=== PATIENT | female | born 2000 | race African-American/Black ===

== ENCOUNTER 2022-12-17 16:03 | Inpatient (IN) | payer OTHER, SELFPAY ==
[2022-12-17] VITALS (9 sets, daily range): BP systolic 79–205; BP diastolic 40–188; PULSE 63–153; BMI 35.6
--- NOTE | 2022-12-17 16:03 | LDADM ---
This patient, Simona Delgadillo, was admitted to Labor/Delivery/Recovery 108 on 12/17/22 at 16:03. Plans for labor, pain management and were discussed with patient. Patient/family oriented to hospital policies and general routines including ID bracelet, bed and alarms, visiting hours, pain management, procedures, bathroom and other care routines, personal items, smoking policy, room service/diet and guest tray routines, infant security routines, and visiting hours. Patient/Family are encouraged to report perceived risks to care and to ask questions if they do not understand what they are told or what they should do. See OBIX for further documentation.
--- NOTE | 2022-12-17 16:55 | P.PNAN_ITS ---
Anes - Eval Pre Procedure Procedure: Labor epidural Date/Time: 12/17/22 16:55 Pre Op Diagnosis: Induction of Labor Patient Data Age: 22 Gender: F Height: Weight: Last Vital Signs Pulse 84 12/17/22 16:39 BP 127/85 12/17/22 16:39 Allergies Allergy/AdvReac Type Severity Reaction Status Date / Time No Known Allergies Allergy Unverified 02/22/12 18:36 Home Medications Medication Instructions Recorded Confirmed Type albuterol sulfate 90 mcg/actuation 2 puff inhalation QID PRN Wheezing 11/19/22 11/19/22 History aerosol inhaler ferrous sulfate 325 mg (65 mg 325 mg PO DAILY 11/19/22 11/19/22 History iron) tablet prenat.vits,matthew,zye-pugi-bpnew 1 tablet PO HS 11/19/22 11/19/22 History Patient hx anesthesia problems: none Family hx anesthesia problems: none Results Review: All pre-operative results and documents have been reviewed as part of the pre- operative evaluation. [facility] Past Medical History Medical History (Updated 12/17/22 @ 16:56 by Tiffanie Ho CRNA) Sickle cell trait Family History Family History Other Patient denies significant medical history Social History Social History Substance use: never Spiritual care concerns: No Exam Day of Procedure 12/17/22 16:55 Patient weight: obese Heart: regular rate and rhythm Lungs: normal air movement Neurological: alert and oriented
[2022-12-17 17:04] LABS: Basophils Percent Auto 0.6 % (0.2-1.2); Eosinophils Absolute Auto 0.1 K/mm3 (0-0.3); Eosinophils Percent Auto 1.6 % (0-4.4); Hematocrit 31.5 % (37.0-47.0); Hemoglobin 10.4 g/dL (12.0-15.0); Immature Granulocyte Absolute 0.05 K/mm3 (0.00-0.031); Immature Granulocyte Percent A 0.8 % (0-0.5); Lymphocytes Absolute Auto 1.96 K/mm3 (0.9-3.2); Lymphocytes Percent Auto 30.7 % (18.3-44.2); Mean Corpuscular Hemoglobin 25.6 pg (26-34); Mean Corpuscular Volume 77.4 fl (80-100); Mean Platelet Volume 9.6 fl (7.4-10.4); Monocytes Absolute Auto 0.5 K/mm3 (0.1-0.6); Monocytes Percent Auto 7.5 % (2.6-8.5); Neutrophils Absolute Auto 3.8 K/mm3 (1.3-6.7); Neutrophils Percent Auto 58.8 % (45.5-73.1); Platelet Count Result 287 k/mm3 (150-375); Red Blood Count 4.07 M/mm3 (4.2-5.4); Red Cell Distribution Width 15.1 % (11.5-14.5); White Blood Count 6.4 K/mm3 (4.5-10.0)
[2022-12-17] MEDS: miSOPROStol 25 MCG TABLET VAGINAL (17:41)
[2022-12-17 18:14] LABS: Amphetamine Screen Urine Negative (Negative); Barbiturate Screen Urine Negative (Negative); Benzodiazepines Screen Urine Negative (Negative); Cannabinoid Screen Urine Positive (Negative); Cocaine Screen Urine Negative (Negative); Methadone Screen Urine Negative (Negative); Opiate Screen Urine Negative (Negative); Phencyclidine Screen Urine Negative (Negative)
[2022-12-17] MEDS: AMPICILLIN 2 GM/NS 100 ML 2 GM/100 ML BAG IVPB (21:31)
[2022-12-17] MEDS: LACTATED RINGERS 1,000 ML 125 ML IV CONT (21:32)
[2022-12-18] VITALS (253 sets, daily range): BP systolic 90–163; BP diastolic 47–106; PULSE 26–206; RESP 14–20; TEMP 36.4–38; O2SAT 83–100
[2022-12-18] MEDS: fentaNYL CITRATE INJ (*CRX) 100 MCG/2 ML VIAL IV PUSH ×2 (01:48→06:35)
[2022-12-18] MEDS: LACTATED RINGERS 1,000 ML 125 ML IV CONT ×3 (01:49→09:22)
[2022-12-18] MEDS: AMPICILLIN 1 GM/NS 50 ML 1 GM/50 ML BAG IVPB ×4 (02:50→15:08)
[2022-12-18] MEDS: OXYTOCIN 30 UNITS/NS 500 ML 30 UNITS/500 ML BAG IV CONT (05:30)
--- NOTE | 2022-12-18 06:50 | PM.IMHP ---
H&P: HPI History of Present Illness Date/Time: 12/18/22 06:50 Chief Complaint: induction of labor Narrative: Simona is a 22yo G1 at 40.1 who presented last night for induction of labor. Received one dose of cytotec. Much of the night had tachysytole though she felt no contractions until recently and made no cervical change. Pitocin was just able to be started recently but then was stopped again due to tachysystole. complicated by chlamydia x2, just retreated last week, anemia, GBS pos, and sickle cell trait. Review of Systems Review of Systems: All systems reviewed & are unremarkable except as noted in HPI and below PMFSH Past Medical History Medical History (Updated 12/18/22 @ 06:54 by Juli Miller MD) Sickle cell trait Family History Family History Other Patient denies significant medical history Social History Social History Smoking status: Current every day smoker Second hand tobacco smoke exposure: Yes Additional smoking assessment comments: smoking weed. Substance use: never Lack of Transportation: No Lack of Food: Never True Current Housing: I Have Housing Concerned About Future Housing: No Difficulty Paying Gas/Electric Bills: No Difficulty Paying for Meds: No Currently Unemployed: YES Education: Grade School Difficulty w/ Childcare or Family Care: No Spiritual care concerns: No Meds Home Medications and Allergies Home Medications Medication Instructions Recorded Confirmed Type albuterol sulfate 90 mcg/actuation 2 puff inhalation QID PRN Wheezing 11/19/22 12/17/22 History aerosol inhaler ferrous sulfate 325 mg (65 mg 325 mg PO DAILY 11/19/22 12/17/22 History iron) tablet prenat.vits,matthew,krs-dgva-jumaq 1 tablet PO HS 11/19/22 12/17/22 History Allergies Allergy/AdvReac Type Severity Reaction Status Date / Time No Known Allergies Allergy Verified 12/17/22 17:10 Vital Signs Vital Signs - 24 hr 12/17/22 16:39 12/17/22 17:01 12/17/22 17:16 Temperature Pulse Rate 84 153 H 74 Blood Pressure 127/85 205/188 H 119/70 Pulse Oximetry Oxygen Delivery 12/17/22 17:30 12/17/22 17:45 12/17/22 17:49 Temperature Pulse Rate 64 71 66 Blood Pressure 108/63 128/96 H 103/64 Pulse Oximetry Oxygen Delivery 12/17/22 18:01 12/17/22 18:15 12/17/22 22:14 Temperature Pulse Rate 63 72 66 Blood Pressure 79/40 L 101/45 L 141/88 H Pulse Oximetry Oxygen Delivery 12/18/22 01:55 12/18/22 02:00 12/18/22 02:05 Temperature Pulse Rate Blood Pressure Pulse Oximetry 99 100 99 Oxygen Delivery 12/18/22 02:10 12/18/22 02:15 12/18/22 02:20 Temperature Pulse Rate Blood Pressure Pulse Oximetry 99 99 99 Oxygen Delivery 12/18/22 02:22 12/18/22 02:23 12/18/22 04:52 Temperature Pulse Rate 59 L Blood Pressure 100/55 L Pulse Oximetry 99 100 Oxygen Delivery 12/18/22 05:02 12/18/22 05:15 12/18/22 05:30 Temperature Pulse Rate 66 66 68 Blood Pressure 106/47 L 112/59 L 124/75 Pulse Oximetry Oxygen Delivery 12/18/22 05:00 12/18/22 06:00 12/18/22 06:45 Temperature 98.1 F 97.9 F Pulse Rate 69 Blood Pressure 124/81 Pulse Oximetry Oxygen Delivery 12/17/22 17:15 Temperature Pulse Rate Blood Pressure Pulse Oximetry Oxygen Delivery Room Air Exam Const: General: no acute distress Resp: Effort & Inspection: normal respiratory effort Auscultation: clear to auscultation bilaterally Cardio: Rate: regular rate Rhythm: regular rhythm GI: GI Palp: Yes Soft to palpation Extrem: General: normal to inspection H&P: Results Labs Labs: Short CBC 12/17/22 Range/Units 16:37 WBC 6.4 (4.5-10.0) K/mm3 Hgb 10.4 L (12.0-15.0) g/dL Hct 31.5 L (37.0-47.0) % Plt Count 287 (150-375) k/mm3 Assessment and P
--- NOTE | 2022-12-18 09:57 | WPDANESEPP ---
Anes - Eval Pre Procedure Procedure: labor epidural Date/Time: 12/18/22 09:57 Surgeon: Paul Preop Diagnosis: labor pain Pre Op Diagnosis: Induction of Labor Patient Data Age: 22 Gender: F Height: 1.65 m Weight: 97 kg Last Vital Signs Temp 36.6 C 12/18/22 06:00 Pulse 63 12/18/22 09:45 BP 106/75 12/18/22 09:45 Pulse Ox 100 12/18/22 09:55 O2 Del Method Room Air 12/17/22 17:15 Allergies Allergy/AdvReac Type Severity Reaction Status Date / Time No Known Allergies Allergy Verified 12/17/22 17:10 Home Medications Medication Instructions Recorded Confirmed Type albuterol sulfate 90 mcg/actuation 2 puff inhalation QID PRN Wheezing 11/19/22 12/17/22 History aerosol inhaler ferrous sulfate 325 mg (65 mg 325 mg PO DAILY 11/19/22 12/17/22 History iron) tablet prenat.vits,matthew,fjm-gsts-dgiob 1 tablet PO HS 11/19/22 12/17/22 History Laboratory Tests 12/17/22 12/17/22 12/17/22 16:37 16:37 16:37 WBC 6.4 K/mm3 K/mm3 (4.5-10.0) RBC 4.07 M/mm3 L M/mm3 (4.2-5.4) Hgb 10.4 g/dL L g/dL (12.0-15.0) Hct 31.5 % L % (37.0-47.0) MCV 77.4 fl L fl (80-100) MCH 25.6 pg L pg (26-34) MCHC 33.0 g/dl g/dl (32-36) RDW 15.1 % H % (11.5-14.5) Plt Count 287 k/mm3 k/mm3 (150-375) MPV 9.6 fl fl (7.4-10.4) Immature Gran % (Auto) 0.8 % H % (0-0.5) Neut % (Auto) 58.8 % % (45.5-73.1) Lymph % (Auto) 30.7 % % (18.3-44.2) [place] % (Auto) 7.5 % % (2.6-8.5) Eos % (Auto) 1.6 % % (0-4.4) Baso % (Auto) 0.6 % % (0.2-1.2) Lymph # (Auto) 1.96 K/mm3 K/mm3 (0.9-3.2) [place] # (Auto) 0.5 K/mm3 K/mm3 (0.1-0.6) Eos # (Auto) 0.1 K/mm3 K/mm3 (0-0.3) Baso # (Auto) 0.0 K/mm3 K/mm3 (0.0-0.1) Abs Immat Gran (auto) 0.05 K/mm3 H K/mm3 (0.00-0.031) Absolute Neuts (auto) 3.8 K/mm3 K/mm3 (1.3-6.7) Absolute Nucleated RBC 0.0 K/mm3 K/mm3 (0.0-0.012) Nucleated RBC % 0.0 % % (0.0-0.2) Urine Opiates Screen Urine Methadone Screen Ur Barbiturates Screen Ur Phencyclidine Scrn Ur Amphetamine Screen U Benzodiazepines Scrn Urine Cocaine Screen U Cannabinoids Screen RPR Pending Blood Type O Positive Antibody Screen Negative 12/17/22 17:37 WBC RBC Hgb Hct MCV MCH MCHC RDW Plt Count MPV Immature Gran % (Auto) Neut % (Auto) Lymph % (Auto) [place] % (Auto) Eos % (Auto) Baso % (Auto) Lymph # (Auto) [place] # (Auto) Eos # (Auto) Baso # (Auto) Abs Immat Gran (auto) Absolute Neuts (auto) Absolute Nucleated RBC Nucleated RBC % Urine Opiates Screen Negative (Negative) Urine Methadone Screen Negative (Negative) Ur Barbiturates Screen Negative (Negative) Ur Phencyclidine Scrn Negative (Negative) Ur Amphetamine Screen Negative (Negative) U Benzodiazepines Scrn Negative (Negative) Urine Cocaine Screen Negative (Negative) U Cannabinoids Screen Positive A (Negative) RPR Blood Type Antibody Screen : gestational age (, ANN 12/17/22) Patient hx anesthesia problems: none Family hx anesthesia problems: none Results Review: All pre-operative results and documents have been reviewed as part of the pre-operative evaluation. [facility] Past Medical History Medical History (Updated 12/18/22 @ 06:54 by Juli Miller MD) Sickle cell trait Family History Family History Other Patient denies significant medical history Social History Social History (Revi
[2022-12-18 10:53] LABS: Rapid Plasma Reagin Non-Reactive (NonReactive)
--- NOTE | 2022-12-18 18:02 | WPDHPUPDATE1 ---
History and Physical Update Update Date/Time: 12/18/22 18:02 FHT category 1. toco: q 1 min, from 20 to 40 MVUs each above baseline. SVE /-2 Given persistent tachysystole all day, no matter what is done with pitocin (break, half, pit through them) and inability to obtain adequate contractions, and fetus still high in pelvis and abdomen, with minimal change from 5 to 7cm all day, now with temp of 100.4, I recommend a delivery. Possible LGA baby, definite uterine dysfunction that we cannot overcome. I prefer to do before baby is compromised when vaginal delivery seems unlikely. Discussed RBA of with pt. Mandie. She consents readily. Will proceed. Risks, benefits, and alternatives have been discussed and questions answered. Patient agrees to proceed with procedure.
[2022-12-18] MEDS: ceFAZolin 2 GM/D5W 50 ML 2 GM/50 ML BAG IVPB (18:26)
--- NOTE | 2022-12-18 18:52 | WPDANESEPP ---
Anes - Eval Pre Procedure Procedure: Operation Date: 12/18/22 18:30 Proposed Procedures p Section - Juli Miller MD Date/Time: 12/18/22 18:52 Pre Op Diagnosis: Induction of Labor Patient Data Age: 22 Gender: F Height: 1.65 m Weight: 97 kg Last Vital Signs Temp 38.0 C H 12/18/22 18:00 Pulse 110 H 12/18/22 18:00 BP 90/64 L 12/18/22 18:00 Pulse Ox 100 12/18/22 18:05 O2 Del Method Room Air 12/17/22 17:15 Allergies Allergy/AdvReac Type Severity Reaction Status Date / Time No Known Allergies Allergy Verified 12/17/22 17:10 Home Medications Medication Instructions Recorded Confirmed Type albuterol sulfate 90 mcg/actuation 2 puff inhalation QID PRN Wheezing 11/19/22 12/17/22 History aerosol inhaler ferrous sulfate 325 mg (65 mg 325 mg PO DAILY 11/19/22 12/17/22 History iron) tablet prenat.vits,matthew,tuu-vdtk-aswju 1 tablet PO HS 11/19/22 12/17/22 History Laboratory Tests 12/17/22 16:37 RPR Non-reactive (NonReactive) Patient hx anesthesia problems: none Family hx anesthesia problems: none Results Review: All pre-operative results and documents have been reviewed as part of the pre-operative evaluation. [facility] Past Medical History Medical History Sickle cell trait Family History Family History Other Patient denies significant medical history Social History Social History Smoking status: Current every day smoker Second hand tobacco smoke exposure: Yes Additional smoking assessment comments: smoking weed. Substance use: never Lack of Transportation: No Lack of Food: Never True Current Housing: I Have Housing Concerned About Future Housing: No Difficulty Paying Gas/Electric Bills: No Difficulty Paying for Meds: No Currently Unemployed: YES Education: Grade School Difficulty w/ Childcare or Family Care: No Spiritual care concerns: No Exam Day of Procedure 12/18/22 18:52 Patient weight: obese Heart: regular rate and rhythm Lungs: normal air movement Airway: Mallampati scale class II Neurological: alert and oriented
[2022-12-18] MEDS: TRANEXAMIC ACID 1,000 MG/10 ML AMPUL 1000 MG IV PUSH (19:02)
[2022-12-18] MEDS: METHYLERGONOVINE MALEATE 0.2 MG/ML VIAL IM ×2 (19:04→19:58)
[2022-12-18] MEDS: CARBOPROST TROMETHAMINE 250 MCG/ML AMPUL IM (19:07)
[2022-12-18 19:27] LABS: Hemoglobin 8.5 g/dL (12.0-15.0)
[2022-12-18] MEDS: miSOPROStol 200 MCG TABLET 800 MCG RECTAL (19:58)
[2022-12-18 20:18] LABS: Basophils Percent Auto 0.3 % (0.2-1.2); Eosinophils Percent Auto 0.1 % (0-4.4); Hemoglobin 8.4 g/dL (12.0-15.0); Immature Granulocyte Absolute 0.04 K/mm3 (0.00-0.031); Immature Granulocyte Percent A 0.3 % (0-0.5); Lymphocytes Absolute Auto 1.03 K/mm3 (0.9-3.2); Lymphocytes Percent Auto 7.5 % (18.3-44.2); Mean Corpuscular HGB Conc 32.3 g/dl (32-36); Mean Corpuscular Hemoglobin 25.1 pg (26-34); Mean Corpuscular Volume 77.6 fl (80-100); Mean Platelet Volume 9.4 fl (7.4-10.4); Monocytes Absolute Auto 0.8 K/mm3 (0.1-0.6); Monocytes Percent Auto 5.5 % (2.6-8.5); Neutrophils Absolute Auto 11.9 K/mm3 (1.3-6.7); Neutrophils Percent Auto 86.3 % (45.5-73.1); Platelet Count Result 205 k/mm3 (150-375); Red Blood Count 3.35 M/mm3 (4.2-5.4); Red Cell Distribution Width 15.4 % (11.5-14.5); White Blood Count 13.8 K/mm3 (4.5-10.0)
--- NOTE | 2022-12-18 20:38 | PM.OBPRVD ---
OB - Delivery Note Procedure Delivery date: 12/18/22 Procedure: Procedures Operation Date: 12/18/22 18:30 Actual Procedure Side Surgeon p Section Bilateral Juli Miller MD Events: Elective Induction of Labor and Other Intrapartal Events: Arrest of Dilation, Failed Induction of Labor and Other (dysfunctional uterus) Induction method: AROM, Per Misoprostol Protocol and Per Pitocin Protocol Delivery monitor: External FHT and Internal Uterine Route of delivery: Prior to decision for section, ACOG/SMFM labor guidelines were considered and discussed with the patient and staff. Decision made to proceed with the section.: Yes Specimen: Yes (placenta) Quantitative Blood Loss (ml): 1,963 Anesthesia type: Epidural Disposition: Floor Complications: none Narrative: The patient was taken to the OR and received spinal anesthesia. She was placed in dorsal supine position with left lateral tilt. SCDs and gaspar were placed. She was prepped and draped in the normal sterile fashion. A Pfannensteil skin incision was made and carried through to the underlying layer of fascia. The fascia was incised in the midline and then extended laterally using Nieto scissors. The muscles were in the midline and the peritoneum was entered bluntly. The peritoneal incision was extended inferiorly and superiorly with care to avoid the bladder. The bladder blade was then inserted, the vesicouterine peritoneum was grasped, incised with Metzenbaum scissors, and a bladder flap created. The bladder blade was reinserted. A low transverse uterine incision was made with a scalpel and extended bluntly. AROM was performed and fluid was noted to be clear. The head was delivered, followed by the remainder of the baby. The baby's oropharynx was suctioned. After 30 seconds, the cord was clamped and cut and the infant was handed off. Cord blood was obtained and the placenta was then removed manually. The uterus was exteriorized. A moist lap sponge was used to curette the endometrium. The uterine tone was extremely poor. Tranexamic acid, methergine x2, hemabate, extra pitocin, and cytotec were given. The uterine incision was then closed with two layers of 0-Vicryl in a running, locking fashion. Good hemostasis was noted. The posterior cul de sac was irrigated with normal saline and cleared of all clot and debris. The uterus was returned to the abdomen. Both lateral gutters were then irrigated. The rectus muscles were inspected and made hemostatic with bovie cautery. The fascia was reapproximated using 0-Vicryl in running fashion. The subcutaneous tissue was irrigated with normal saline and made hemostatic with Bovie electrocautery. The skin was then closed with absorbable olvin. Steri strips and a bandage were applied. The uterus was evacuated, revealing clots and further bleeding. Manual removal of clots from the lower uterine segment was done with resolution of the bleeding. An intraop hemoglobin was 8.5. The patient tolerated the procedure well. All counts were correct. She was taken to the recovery room in stable condition. Superior Baby Date of : 12/18/22 Time of : 18:57 Weeks of gestation at delivery: 40 gender: Male Weight (pounds): 8 Weight (ounces): 14 presentation: vertex Placenta delivery description: Manual Removal Cord Vessel Description: 3 Vessels and Delayed Cord Clamping score one minute: 8 score five minutes: 9
--- NOTE | 2022-12-18 21:06 | PC.NURSE ---
Dr Keita and Joan Ho SPECIAL DELIVERY CLERK on unit, looking for pending lab results. Lab called at appx [phone] look for results per SPECIAL DELIVERY CLERK.
[2022-12-18 21:21] LABS: INR 1.3; Prothrombin Time 15.6 Seconds (11.1-14.7)
[2022-12-18 21:27] LABS: Partial Thromboplastin Time > 200.0 SECONDS (22.3-36.8)
--- NOTE | 2022-12-18 21:32 | PC.NURSE ---
Joan Ho notified of PT, PTT an INR, Fib pending, will call [facility] and will call me back.
--- NOTE | 2022-12-18 21:33 | PC.NURSE ---
Dr Miller and Dr Keita both informed of PTT>200, orders received and confirmed by both MD's.
--- NOTE | 2022-12-18 22:00 | PC.NURSE ---
Notified per lab that Fibrinogen was unable to be ran to lab error, requesting redraw.
--- NOTE | 2022-12-18 22:02 | PC.NURSE ---
preload supervisor notified of critical lab values and planned transfusions.
--- NOTE | 2022-12-18 22:07 | PC.NURSE ---
Dr Keita updated on lab error with Fibrinogen and redraw is occurring now. Call results if abnormal. OK to move to PP is bleeding is stable.
[2022-12-18] MEDS: fentaNYL CITRATE INJ (*CRX) 100 MCG/2 ML VIAL 50 MCG IV PUSH (22:13)
[2022-12-18 22:27] LABS: Fibrinogen 296 mg/dl (215-510)
--- NOTE | 2022-12-18 22:34 | PC.NURSE ---
Dr Miller notified of delay in Fibrinogen and redraw, Fibrinogen resulted and given to . requesting 3 hour recovery here in labor and can finish blood products upstairs on PP.
[2022-12-19] VITALS (11 sets, daily range): BP systolic 99–128; BP diastolic 60–84; PULSE 72–98; RESP 16; TEMP 36.4–37.6; O2SAT 98–100
[2022-12-19 02:39] LABS: Basophils Percent Auto 0.3 % (0.2-1.2); Eosinophils Percent Auto 0.1 % (0-4.4); Hematocrit 29.2 % (37.0-47.0); Hemoglobin 9.7 g/dL (12.0-15.0); Immature Granulocyte Absolute 0.05 K/mm3 (0.00-0.031); Immature Granulocyte Percent A 0.4 % (0-0.5); Lymphocytes Absolute Auto 1.34 K/mm3 (0.9-3.2); Lymphocytes Percent Auto 10.4 % (18.3-44.2); Mean Corpuscular HGB Conc 33.2 g/dl (32-36); Mean Corpuscular Hemoglobin 26.4 pg (26-34); Mean Corpuscular Volume 79.6 fl (80-100); Mean Platelet Volume 9.3 fl (7.4-10.4); Monocytes Percent Auto 7.8 % (2.6-8.5); Neutrophils Absolute Auto 10.5 K/mm3 (1.3-6.7); Platelet Count Result 176 k/mm3 (150-375); Red Blood Count 3.67 M/mm3 (4.2-5.4); Red Cell Distribution Width 15.9 % (11.5-14.5); White Blood Count 12.9 K/mm3 (4.5-10.0)
[2022-12-19] MEDS: IBUPROFEN 600 MG TABLET PO ×3 (04:25→22:32)
[2022-12-19] MEDS: HYDROcodone/acetaminophen (*CRX) 5-325 MG TABLET 1 TAB PO ×2 (04:25→11:00)
--- NOTE | 2022-12-19 06:55 | PM.OBPNVD ---
OB - PN: Subj Subjective Date/time seen: 12/19/22 06:55 Patient comments: incisional pain baby status: doing well feeding status: exclusively bottle feeding Narrative: POD 1 from primary CS. 2L blood loss with mild DIC. Received 2u PRBCs and 2 FFP. normal fibrinogen. Hgb 9.7 after blood. No flatus yet. OB - PN: Obj Data Labs 12/19/22 02:35 Labs: Laboratory Results - last 24 hr 12/17/22 12/17/22 12/18/22 16:37 16:37 19:16 WBC RBC Hgb 8.5 L Hct 26.0 L MCV MCH MCHC RDW Plt Count MPV Immature Gran % (Auto) Neut % (Auto) Lymph % (Auto) [place] % (Auto) Eos % (Auto) Baso % (Auto) Lymph # (Auto) [place] # (Auto) Eos # (Auto) Baso # (Auto) Abs Immat Gran (auto) Absolute Neuts (auto) Absolute Nucleated RBC Nucleated RBC % PT INR APTT Fibrinogen RPR Non-reactive Blood Type O Positive Antibody Screen Negative Crossmatch See Detail 12/18/22 12/18/22 12/18/22 20:11 20:11 22:11 WBC 13.8 H RBC 3.35 L Hgb 8.4 L Hct 26.0 L MCV 77.6 L MCH 25.1 L MCHC 32.3 RDW 15.4 H Plt Count 205 MPV 9.4 Immature Gran % (Auto) 0.3 Neut % (Auto) 86.3 H Lymph % (Auto) 7.5 L [place] % (Auto) 5.5 Eos % (Auto) 0.1 Baso % (Auto) 0.3 Lymph # (Auto) 1.03 [place] # (Auto) 0.8 H Eos # (Auto) 0.0 Baso # (Auto) 0.0 Abs Immat Gran (auto) 0.04 H Absolute Neuts (auto) 11.9 H Absolute Nucleated RBC 0.0 Nucleated RBC % 0.0 PT 15.6 H INR 1.3 APTT > 200.0 H* Fibrinogen Cancelled 296 RPR Blood Type Antibody Screen Crossmatch 12/19/22 02:35 WBC 12.9 H RBC 3.67 L Hgb 9.7 L Hct 29.2 L MCV 79.6 L MCH 26.4 D MCHC 33.2 RDW 15.9 H Plt Count 176 MPV 9.3 Immature Gran % (Auto) 0.4 Neut % (Auto) 81.0 H Lymph % (Auto) 10.4 L [place] % (Auto) 7.8 Eos % (Auto) 0.1 Baso % (Auto) 0.3 Lymph # (Auto) 1.34 [place] # (Auto) 1.0 H Eos # (Auto) 0.0 Baso # (Auto) 0.0 Abs Immat Gran (auto) 0.05 H Absolute Neuts (auto) 10.5 H Absolute Nucleated RBC 0.0 Nucleated RBC % 0.0 PT INR APTT Fibrinogen RPR Blood Type Antibody Screen Crossmatch OB - PN A/P Plan day: 1 Plan: routine care Comments: Bleeding resolved, normal lochia Hgb 9.7 vitals stable repeat CBC in am gaspar out later today ambulate simethicone Time Spent With Patient Time: Total time spent is greater than 50% in coordination of care (as documented) at patient's floor/unit and/or counseling patient: Exam Narrative: NAD abdomen soft, appropriately tender, incision bandaged, mildly distended Extremities nontender with 1+ edema
[2022-12-19] MEDS: POLYSACCHARIDE IRON COMPLEX 150 MG CAPSULE PO ×2 (10:58→15:51)
[2022-12-19] MEDS: SIMETHICONE 80 MG TAB.CHEW PO ×3 (10:58→22:32)
[2022-12-19] MEDS: MULTIVIT/MIN/PREN/FOL AC/IRON TABLET 1 TAB PO (10:59)
[2022-12-19] MEDS: DOCUSATE SODIUM 100 MG CAPSULE PO ×2 (11:00→15:51)
[2022-12-19] MEDS: HYDROcodone/acetaminophen (*CRX) 10-325 MG TABLET 1 TAB PO ×3 (15:54→22:32)
--- NOTE | 2022-12-19 19:10 | PC.NURSE ---
1148 Cari MCCLURE called out for help from room 281. Dev Agrawal RN and this RN ran into the room. Shelton the FOB had fallen off of the couch to the floor and was seizing. 1149 The RR team was called. See Incident report and RR Team report.
[2022-12-20] MEDS: SIMETHICONE 80 MG TAB.CHEW PO ×6 (01:47→23:05)
[2022-12-20] MEDS: HYDROcodone/acetaminophen (*CRX) 10-325 MG TABLET 1 TAB PO ×6 (01:47→23:05)
[2022-12-20] MEDS: IBUPROFEN 600 MG TABLET PO ×3 (04:45→23:05)
[2022-12-20 05:58] LABS: Basophils Percent Auto 0.4 % (0.2-1.2); Eosinophils Absolute Auto 0.1 K/mm3 (0-0.3); Eosinophils Percent Auto 1.3 % (0-4.4); Hematocrit 25.3 % (37.0-47.0); Hemoglobin 8.3 g/dL (12.0-15.0); Immature Granulocyte Absolute 0.03 K/mm3 (0.00-0.031); Immature Granulocyte Percent A 0.3 % (0-0.5); Lymphocytes Absolute Auto 1.88 K/mm3 (0.9-3.2); Lymphocytes Percent Auto 18.1 % (18.3-44.2); Mean Corpuscular HGB Conc 32.8 g/dl (32-36); Mean Corpuscular Hemoglobin 25.9 pg (26-34); Mean Corpuscular Volume 79.1 fl (80-100); Mean Platelet Volume 10.1 fl (7.4-10.4); Monocytes Absolute Auto 0.8 K/mm3 (0.1-0.6); Monocytes Percent Auto 7.2 % (2.6-8.5); Neutrophils Absolute Auto 7.6 K/mm3 (1.3-6.7); Neutrophils Percent Auto 72.7 % (45.5-73.1); Platelet Count Result 172 k/mm3 (150-375); Red Cell Distribution Width 15.9 % (11.5-14.5); White Blood Count 10.4 K/mm3 (4.5-10.0)
[2022-12-20 07:40] VITALS: BP 115/55; PULSE 64; RESP 16; TEMP 36.9; O2SAT 100
--- NOTE | 2022-12-20 08:12 | PM.OBPNVD ---
OB - PN: Subj Subjective Date/time seen: 12/20/22 08:12 Denies heavy vaginal bleeding, denies dizziness, ambulating well, fully functional. The pain is reasonable/ Well controlled. Patient comments: no complaints, pain well controlled, incisional pain, tolerating diet and flatus present OB - PN: Obj Data Labs 12/20/22 04:49 Labs: Laboratory Results - last 24 hr 12/20/22 04:49 WBC 10.4 H RBC 3.20 L Hgb 8.3 L Hct 25.3 L MCV 79.1 L MCH 25.9 L MCHC 32.8 RDW 15.9 H Plt Count 172 MPV 10.1 Immature Gran % (Auto) 0.3 Neut % (Auto) 72.7 Lymph % (Auto) 18.1 L [place] % (Auto) 7.2 Eos % (Auto) 1.3 Baso % (Auto) 0.4 Lymph # (Auto) 1.88 [place] # (Auto) 0.8 H Eos # (Auto) 0.1 Baso # (Auto) 0.0 Abs Immat Gran (auto) 0.03 Absolute Neuts (auto) 7.6 H Absolute Nucleated RBC 0.0 Nucleated RBC % 0.0 OB - PN A/P Plan day: 2 Plan: routine care Comments: POD#2 LTCS - Intraoperative hemorrhage, 1900 cc blood loss, recovering normally, received 2 units of blood and FFP. hemoglobin is 8 today. To recheck PT PTT and fibrinogen. Recovering remarkably well, ambulating, no overt signs of anemia or hyportension. Time Spent With Patient Time: Total time spent is greater than 50% in coordination of care (as documented) at patient's floor/unit and/or counseling patient: Exam Const: General: comfortable, no acute distress and alert Resp: Effort & Inspection: normal respiratory effort Auscultation: no crackles, no rales and no rhonchi Cardio: Rate: regular rate Heart sounds: no click, no murmurs and no rubs GI: Inspection: non-distended GI Palp: No Tenderness to palpation present (GI) Auscultation: normal bowel sounds Other: Incision - CDI Extrem: General: normal to inspection, no pedal edema and no calf tenderness
[2022-12-20] MEDS: POLYSACCHARIDE IRON COMPLEX 150 MG CAPSULE PO ×2 (08:23→17:03)
[2022-12-20] MEDS: DOCUSATE SODIUM 100 MG CAPSULE PO ×2 (08:24→17:04)
--- NOTE | 2022-12-20 09:20 | WPDANLDNPN2 ---
Anes-Prog Note L&D-Neuraxial Date/Time: 12/20/22 09:20 Neuraxial medications: intrathecal PF morphine Opiod-related complaints: none Patient feedback: Patient satisfied with post-operative pain management.
--- NOTE | 2022-12-20 09:21 | WPDANLDPN2 ---
Anes-Prog Note L&D Date/Time: 12/20/22 09:21 Comfortable throughout: section Neuraxial method: spinal Epidural/Spinal procedure site: clean & non-tender Neuro status: Neuro function grossly intact. Cardiovascular status: normal Respiratory status: normal Airway patency: baseline Mental status: baseline Post-Op hydration status: normal Vital Signs: Last Vital Signs Temp 98.5 F 12/20/22 07:40 Pulse 64 12/20/22 07:40 Resp 16 12/20/22 07:40 BP 115/55 L 12/20/22 07:40 Pulse Ox 100 12/20/22 07:40 O2 Del Method Room Air 12/19/22 15:50 O2 Flow Rate 2 12/18/22 21:00 Pain score (VAS): 0/10 I/O: Intake & Output 12/19/22 12/20/22 12/20/22 23:59 07:59 15:59 Intake Total 500 Balance 500 Post-procedural complaints: none Patient feedback: Patient satisfied with anesthetic care.
--- NOTE | 2022-12-20 09:23 | WPDANLDNPN2 ---
Anes-Prog Note L&D-Neuraxial Date/Time: 12/20/22 09:23 Neuraxial medications: intrathecal PF morphine Opiod-related complaints: none Patient feedback: Patient satisfied with post-operative pain management.
[2022-12-20 17:02] LABS: Fibrinogen 524 mg/dl (215-510)
[2022-12-20 17:03] LABS: INR 1.2; Partial Thromboplastin Time 37.5 SECONDS (22.3-36.8); Prothrombin Time 14.2 Seconds (11.1-14.7)
[2022-12-20 19:42] VITALS: BP 138/75; PULSE 90; RESP 16; TEMP 36.6
[2022-12-21] MEDS: SIMETHICONE 80 MG TAB.CHEW PO ×3 (02:39→09:08)
[2022-12-21] MEDS: HYDROcodone/acetaminophen (*CRX) 10-325 MG TABLET 1 TAB PO ×3 (02:39→09:08)
[2022-12-21] MEDS: IBUPROFEN 600 MG TABLET PO (05:28)
--- NOTE | 2022-12-21 07:42 | PM.OBPNVD ---
OB - PN: Subj Subjective Date/time seen: 12/21/22 07:42 doing well post section OB - PN: Obj Data Labs 12/20/22 04:49 Labs: Laboratory Results - last 24 hr 12/20/22 14:09 PT 14.2 INR 1.2 APTT 37.5 H Fibrinogen 524 H OB - PN A/P Plan day: 3 Plan: routine care and discharge home Time Spent With Patient Time: Total time spent is greater than 50% in coordination of care (as documented) at patient's floor/unit and/or counseling patient: Review of Systems Review of Systems: All systems reviewed & are unremarkable except as noted in HPI and below Exam Narrative: Incision CDI Const: General: cooperative
--- NOTE | 2022-12-21 07:45 | PM.OBDSVD ---
DS: Admitting Diagnosis Discharge Date 12/21/22 Admitting Diagnosis IOL DS: Discharge Diagnosis Discharge Diagnosis (1) Delivery by section: Status: Acute OB - DS: Summary OB Procedures : None OB Procedures Intrapartum: OB Procedures: : Transfusion Peripartum Data Procedures: Procedures Operation Date: 12/18/22 18:30 Actual Procedure Side Surgeon p Section Bilateral Juli Miller MD Time Spent with Patient Time attestation: Total time spent providing and/or coordinating discharge services: DS: Data Data Completed and Pending Labs on day of discharge: Labs from last 24 hours 12/20/22 14:09 PT 14.2 INR 1.2 APTT 37.5 H Fibrinogen 524 H Discharge Plan Discharge Attending physician on discharge: Angel Andersen Discharging Clinician: Fany Dias Patient Disposition: Home, Self-Care Activity: pelvic rest Diet: regular Patient Instructions: Antibiotic Form, How to Stop Smoking (DC) Stand Alone Forms: General Discharge Information Follow-up/Referrals: Juli Miller MD [Physician] - 1 Week Discharge Medications: New hydrocodone-acetaminophen 5-325 mg Tablet 1 tablet PO Q3H PRN (Reason: Moderate Pain (4-6)) Qty: 30 0RF Continued ferrous sulfate 325 mg (65 mg iron) Tablet 325 mg PO DAILY albuterol sulfate 90 mcg/actuation Hfa Aerosol Inhaler 2 puff INHALATION QID PRN (Reason: Wheezing) #2 Tablet 1 tablet PO HS Date of admission: 12/17/22 16:03 Primary Care Provider: UNKNOWN,DOCTOR Admitting Provider: Juli Miller Attending physician on admission: Juli Miller Condition: Stable
[2022-12-21 08:00] VITALS: BP 131/74; PULSE 72; RESP 18; TEMP 36.6; O2SAT 100
[2022-12-21] MEDS: POLYSACCHARIDE IRON COMPLEX 150 MG CAPSULE PO (09:07)
[2022-12-21] MEDS: DOCUSATE SODIUM 100 MG CAPSULE PO (09:07)
== END 2022-12-21 10:53 | disposition home or self-care (01) | DRG 540 ==
LOC: ANHLDR 12-18 04:36 → ANHOB2 12-21 07:45 → ANHLDR 12-24 10:53 → ANHOB2 12-24 10:53
PROVIDERS: Anesthesiology; Obstetrics & Gynecology; Admitting Provider Obstetrics & Gynecology; Visit Provider Advanced Practice Midwife
PROC: 10D00Z1 Extraction of Products of Conception, Low, Open Approach (ICD-10-PCS; CPT 59514; principal; 2022-12-18 18:30)
DX: O75.2 Pyrexia during labor, not elsewhere classified (principal); O72.1 Other immediate postpartum hemorrhage; O98.82 Other maternal infectious and parasitic diseases complicating childbirth; D57.3 Sickle-cell trait; O99.02 Anemia complicating childbirth; O62.0 Primary inadequate contractions; O99.824 Streptococcus B carrier state complicating childbirth; Z3A.40 40 weeks gestation of pregnancy; Z37.0 Single live birth
CPT/HCPCS: 36415; 36430; 80307; 85014; 85018; 85025; 85384; 85610; 85730; 86592; 86850; 86900; 86901; 86923; A9270; J0290; J0456; J0690; J2210; J2250; J2274; J2590; J2795; J3010; J7120; P9016; P9017

== ENCOUNTER 2023-02-06 21:37 | Emergency (ER) | payer OTHER, SELFPAY ==
[2023-02-06 21:39] VITALS: BP 127/84; PULSE 79; RESP 16; TEMP 36.7; O2SAT 100
[2023-02-06 21:58] LABS: Basophils Percent Auto 0.8 % (0.2-1.2); Eosinophils Absolute Auto 0.2 K/mm3 (0-0.3); Eosinophils Percent Auto 3.4 % (0-4.4); Hematocrit 30.2 % (37.0-47.0); Hemoglobin 9.8 g/dL (12.0-15.0); Immature Granulocyte Absolute 0.01 K/mm3 (0.00-0.031); Immature Granulocyte Percent A 0.2 % (0-0.5); Lymphocytes Absolute Auto 2.63 K/mm3 (0.9-3.2); Lymphocytes Percent Auto 53.1 % (18.3-44.2); Mean Corpuscular HGB Conc 32.5 g/dl (32-36); Mean Corpuscular Hemoglobin 25.3 pg (26-34); Mean Platelet Volume 8.9 fl (7.4-10.4); Monocytes Absolute Auto 0.3 K/mm3 (0.1-0.6); Monocytes Percent Auto 6.1 % (2.6-8.5); Neutrophils Absolute Auto 1.8 K/mm3 (1.3-6.7); Neutrophils Percent Auto 36.4 % (45.5-73.1); Platelet Count Result 278 k/mm3 (150-375); Red Blood Count 3.87 M/mm3 (4.2-5.4); Red Cell Distribution Width 17.7 % (11.5-14.5)
[2023-02-06 22:15] LABS: Anion Gap 7 mmol/L (8-16); Blood Urea Nitrogen 6 mg/dL (7-17); Calcium 8.6 mg/dL (8.4-10.2); Carbon Dioxide 24 mmol/L (22-30); Chloride 108 mmol/L (98-107); Estimated CRCL calculation 96 ml/min; Estimated Glomerular Filt Rate > 60; Glucose 82 mg/dL (65-110); Potassium 3.6 mmol/L (3.4-5.0); Sodium 139 mmol/L (137-145)
== END 2023-02-06 23:07 | disposition left against medical advice (07) ==
LOC: ANHED 23:32
PROVIDERS: Emergency Provider Emergency Medicine; PCP Obstetrics & Gynecology
DX: N93.9 Abnormal uterine and vaginal bleeding, unspecified (principal)
CPT/HCPCS: 36415; 80048; 85025; 86850; 86900; 86901; 99199

== ENCOUNTER 2025-06-28 22:44 | Emergency (ER) | payer SELFPAY ==
--- NOTE | ~2025-06-28 | XR_ITS ---
Examination: XR finger 4th RT min 2V Clinical History: injury Comparison: None Technique: 3 views right fourth finger Findings/impression: 1. No fracture or other acute abnormality identified. Reviewed, dictated and finalized at location R.
--- NOTE | ~2025-06-28 | CT_ITS ---
EXAMINATION: CT facial bones wo con DATE: 06/28/2025 23:36 INDICATION: Left periorbital injury. TECHNIQUE: Computed tomography (CT) of the facial bones and maxillofacial region was performed without intravenous contrast. Automated exposure control and iterative reconstruction technique were employed. The dose-length product was 343.76 mGy-cm. COMPARISON: None. FINDINGS: There is mild left periorbital soft tissue swelling. The orbits are normal. There is a mucous retention cyst in left maxillary sinus. There is mild mucosal thickening in the paranasal sinuses. The mastoid air cells are normal. There is leftward deviation of the nasal septum. There are carious lesions of teeth 2, 9, 10, 15, and 19. IMPRESSION: 1. No fracture. 2. Dental disease. Reviewed, dictated and finalized at location E.
[2025-06-28 22:49] VITALS: BP 129/86; PULSE 90; RESP 18; TEMP 36.9; O2SAT 100
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
[2025-06-28] MEDS: MOXIFLOXACIN HCL 0.5% 3 ML OPHTH SOLN 1 DROP LEFT EYE (23:53)
== END 2025-06-29 01:04 | disposition home or self-care (01) ==
PROVIDERS: Emergency Provider Student in an Organized Health Care Education/Training Program; PCP Obstetrics & Gynecology
DX: S05.12XA Contusion of eyeball and orbital tissues, left eye, initial encounter (principal); S00.12XA Contusion of left eyelid and periocular area, initial encounter; M79.644 Pain in right finger(s); D57.3 Sickle-cell trait; F17.200 Nicotine dependence, unspecified, uncomplicated; Y04.2XXA Assault by strike against or bumped into by another person, initial encounter
CPT/HCPCS: 70486; 73140; 99284; A9270

== ENCOUNTER 2025-09-07 08:52 | Emergency (ER) | payer SELFPAY ==
[2025-09-07 09:03] VITALS: BP 161/102; PULSE 68; RESP 20; TEMP 36.8; O2SAT 100
--- NOTE | 2025-09-07 09:20 | ED_ITS ---
HPI - Dental/Oral General Chief complaint: Dental/Oral Stated complaint: tooth pain/left ear pain Source: patient Mode of arrival: ambulatory Limitations: no limitations History of Present Illness HPI Narrative: Simona is a 25-year-old female patient presenting to the clinic today with complaints of left-sided dental pain and left ear pain x1.5 months. She reports she has been taking ibuprofen for symptoms. Rates her pain currently a 10/. No fevers, chills, body aches. No discharge coming from the ear. Not seen a dentist. Related Data Home Medications ?Medication ?Instructions ?Recorded ?Confirmed ?Last Taken ?Type albuterol sulfate 90 mcg/actuation 2 puff inhalation Q ID PRN Wheezing 11/19/22 12/17/22 2 Days Ago History aerosol inhaler ~12/15/22 ferrous sulfate 325 mg (65 mg 325 mg PO DAILY 11/19/22 12/17/22 1 Day Ago History iron) tablet ~12/16/22 prenat.vits,matthew,ogt-unpl-mbiyk 1 tablet PO HS 11/19/22 12/17/22 2 Days Ago History ~12/15/22 Allergies Allergy/AdvReac Type Severity Reaction Status Date / Time No Known Allergies Allergy Verified 12/17/22 17:10 Review of Systems Review of Systems: Pertinent positives per HPI. Patient denies any fever, chills, rash, headache, visual changes, dizziness, cough, runny nose, sore throat, shortness of breath, chest pain, palpitations, nausea, vomiting, diarrhea, constipation, abdominal pain, or any urinary issues. [facility] Past Medical History Medical History Sickle cell trait Family History Family History Other Patient denies significant medical history Social History Social History Smoking status: Current every day smoker Second hand tobacco smoke exposure: Yes Additional smoking assessment comments: smoking weed. Substance use: never Lack of Transportation: No Lack of Food: Never True Current Housing: I Have Housing Concerned About Future Housing: No Difficulty Paying Gas/Electric Bills: No Difficulty Paying for Meds: No Currently Unemployed: YES Education: Grade School Difficulty w/ Childcare or Family Care: No Spiritual care concerns: No Comments At the time of my signature, I reviewed and agree with the nursing past medical, surgical, social, and family history. There is no relevant family history pertinent to the patient complaint. Exam Narrative: General: Well-developed, well nourished, in no apparent distress Head: Normocephalic, atraumatic Eyes: Pupils equally round and reactive to light bilaterally, EOM intact, sclera and conjunctive clear, no discharge, lids normal Ears: TMs intact and clear, ear canals clear, left ear canal mildly swollen and red, tenderness to palpation over the tragus and pulling of the pinna, no drainage, grossly hearing normal. Nose: Nares patent, no discharge, no inflammation, no sinus tenderness. Mouth: Oropharynx without lesions or masses, good dentition, MMM. Tenderness to palpation over the left lower 2nd bicuspid with mild gingival swelling, no palpable abscess Neck: Supple, trachea midline, no enlargement of anterior or posterior cervical nodes, no thyroid masses or goiter palpable. Cardio: Regular rate and rhythm, s1 and s2 normal, no murmur appreciated. Resp: Clear to auscultation bilaterally anteriorly and posteriorly, no rhonchi, rales, wheezing or rubs Course Course Level of Care: Express Care Visit Vital Signs Vital signs: Vital Signs Temperature 36.8 C 09/07/25 09:03 Pulse Rate 68 09/07/25 09:03 Respiratory Rate 20 09/07/25 09:03 Blood Pressure 161/102 H 09/07/25 09:03 Pulse Oximetry 100 09/07/25 09:03 Oxygen Delivery Room Air 09/07/25 09:03 Temperature 36.8 C 09/07/25 09:03 Pulse Rate 68 09/07/25 09:03 Respiratory Rate 20 09/07/25 09:03 Blood Pressure 161/102 H 09/07/25 09:03 Pulse Oximetry 100 09/07/25 09:03 Oxygen Delivery Room Air 09/07/25 09:03 [facility] Narrative Medical decision making narrative: At the time of visit patient is resting comfortably on the exam table. Patient appears to be nontoxic. Complaints of left-sided dental pain and left ear pain x1.5 months. She reports she has been taking ibuprofen for symptoms. Rates her pain currently a 10/10. No fevers, chills, body aches. No discharge coming from the ear. Not seen a dentist. On exam patient has tenderness to palpation over the left lower 2nd bicuspid without palpable abscess, mild gingival swelling, tenderness to palpation over the left tragus and pulling of the left pinna with mild redness and swelling in the left ear canal without drainage. Right TM intact and clear, oral pharynx normal, lung sounds clear, heart rates regular rate and rhythm, patient's blood pressure elevated 161/102 in the clinic. No history of hypertension Plan: I suspect patient has a left otitis externa and left dental pain. Prescription for amoxicillin and ofloxacin ear drops was sent to the pharmacy. Supportive measures were discussed with the patient and they voiced understanding discharge instructions and agrees to treatment plan. Return precautions reviewed Differential Diagnosis Differential Diagnosis: Otitis media, otitis externa, eustachian tube dysfunction, cerumen impaction, upper respiratory infection, serous otitis, gingival abscess, dental caries, toothache, dental abscess, fracture of tooth, aphthous ulcer, TMJ. Discharge Plan Discharge Clinical Impression: Tooth ache, External otitis of left ear Patient Disposition: Home Condition: Stable Instructions: Antibiotic Form, Swimmer's Ear (ED), Toothache (ED) Additional Instructions: Take medications as prescribed-amoxicillin and ofloxacin Increase fluids and stay well hydrated May take Tylenol/Motrin as needed for pain or fever May apply Orajel to the affected area to help alleviate pain May apply warm or cool compress to the affected area to help alleviate pain Follow-up with your dentist as soon as possible You have an elevated blood pressure in the clinic today and I recommend follow- up with primary care physician to have this reevaluated within the next week if symptoms persist. [place] [employer] guidelines state that normal blood pressure is 120/80 or less. Anything over 120/80 is considered elevated and should be monitored. You may need to decrease you salt intake and eat a heart healthy diet to help lower you blood pressure, other treatments would include decreasing stress, weight loss, stop caffeine, and quit smoking. Your primary care provider can determine whether you need to start antihypertensive medications. Untreated high blood pressure can cause dizziness, headaches, visual changes, blindness, kidney failure, stroke, heart attack, and male impotence. Patient Language: Slovenian Prescriptions: New ofloxacin 0.3 % drops 5 drp otic (ear) BID 7 Days Qty: 5 0RF amoxicillin 875 mg tablet 875 mg PO Q12H 10 Days Qty: 20 0RF No Action ferrous sulfate 325 mg (65 mg iron) Tablet 325 mg PO DAILY albuterol sulfate 90 mcg/actuation Hfa Aerosol Inhaler 2 puff INHALATION QID PRN (Reason: Wheezing) prenat.vits,matthew,ymj-gsyw-nmluk Tablet 1 tablet PO HS hydrocodone-acetaminophen 5-325 mg Tablet 1 tablet PO Q3H PRN (Reason: Moderate Pain (4-6)) Qty: 30 0RF moxifloxacin 0.5 % drops 1 drp LEFT EYE TID 7 Days Qty: 3 0RF Follow-up/Referrals: Lise,Cari [Other] Stand Alone Forms: Work/School Release IP Time of Disposition: 09:22 Quality NIHSS Nursing Documentation ED NIHSS nursing documentation: reviewed/agree
== END 2025-09-07 09:26 | disposition home or self-care (01) ==
PROVIDERS: Emergency Provider Nurse Practitioner Family
DX: K08.89 Other specified disorders of teeth and supporting structures (principal); H60.92 Unspecified otitis externa, left ear; F17.200 Nicotine dependence, unspecified, uncomplicated; F12.90 Cannabis use, unspecified, uncomplicated; D57.3 Sickle-cell trait
CPT/HCPCS: 99213; G0463